=== PATIENT | female | born 1960 ===

== ENCOUNTER 2017-01-21 09:30 | Day surgery (SDC) | payer OTHER, MEDICAID ==
[2017-01-19 10:54] VITALS: BMI 49.4
[~2017-01-21 09:30] MED LIST: Acetaminophen/Codeine elixir 120-12mg/5ml PO PRN; Dextrose 5%/0.45% NS 1,000 ML IV SCH
[2017-01-21] MEDS ORDERED: Lactated Ringer's 1,000 ML IV ONE (11:44)
[2017-01-21] MEDS ORDERED: ceFAZolin IV 2 gm in Dextrose 1 GM/50 ML BAG IVPB ONE (11:44)
[2017-01-21] MEDS ORDERED: Lidocaine 2% w Epi 1:100,000 Inj IJ ONE (11:44)
[2017-01-21] MEDS ORDERED: Midazolam 2 MG/2 ML VIAL ONE (11:50)
[2017-01-21] MEDS ORDERED: HYDROmorphone 0.5 mg/0.5 ml ISec IVP PRN (12:08)
[2017-01-21 13:07] VITALS: O2SAT 96
[2017-01-21 15:35] VITALS: BP 120/72; PULSE 75; RESP 20; TEMP 97.9
--- NOTE | 2017-01-22 00:35 | OP ---
PROCEDURE DATE: 01/21/2017 PREOPERATIVE DIAGNOSIS: Left buccal mucosa mass. POSTOPERATIVE DIAGNOSIS: Left buccal mucosa mass. PROCEDURE: Left buccal mucosa mass removal. SIGNIFICANT FINDINGS: Left buccal mucosa mass. DESCRIPTION OF PROCEDURE: The patient was brought into the room and placed in the supine position. Anesthesia was initiated through IV sedation. The patient opened her mouth, left buccal mucosal mass was noted. It was injected with lidocaine with epinephrine. Bovie was used to make an incision in the mucosa around the mass. Dissections were done using a Bovie. The mass was removed. Bleeding was controlled using Bovie. At that point, the patient was taken to recovery room in stable manner. Charli Malin MD MTDPeter
== END 2017-01-21 13:45 | disposition home or self-care (01) ==
LOC: C.SDS 09:30
PROVIDERS: ATTEND Otolaryngology
DX: K13.79 Other lesions of oral mucosa (principal)
CPT/HCPCS: 41116; 82948; 88307; J0690; J1100; J2250; J3010; J7120

== ENCOUNTER 2017-09-08 12:08 | Emergency (ER) | payer MEDICARE, MEDICAID ==
[2017-09-08 12:08] VITALS: BMI 49.4
[2017-09-08 12:15] VITALS: BP 110/77; PULSE 100; RESP 18; TEMP 98.1; O2SAT 98
[2017-09-08] MEDS ORDERED: Naproxen 550 mg Tab PO STA (12:36)
--- NOTE | 2017-09-08 12:41 | C.PDOC ---
History Of Present Illness 57 y/o female, w/PMHx of DM presents to the ER complaining of vulvar and vaginal itching w/discharge present for the past 2 weeks. Patient states she is also having dysuria. Patient has had prior similar symptoms. She denies fever, chills, abdominal pain, nausea, vomiting, diarrhea. Time Seen by Provider: 09/08/17 12:19 Chief Complaint (Nursing): Female Genitourinary History Per: Patient History/Exam Limitations: no limitations Onset/Duration Of Symptoms: Days Current Symptoms Are (Timing): Still Present Severity: Moderate Past Medical History Reviewed: Historical Data, Nursing Documentation, Vital Signs Vital Signs: Last Vital Signs Temp 98.1 F 09/08/17 12:11 Pulse 100 H 09/08/17 12:11 Resp 18 09/08/17 12:11 BP 110/77 09/08/17 12:11 Pulse Ox 98 09/08/17 16:30 - Medical History PMH: Arthritis, Bronchitis, Diabetes (type 2), Gastritis, Gall Bladder Disease, Rheumatoid Arthritis Surgical History: Cholecystectomy Family History: States: No Known Family Hx - Social History Hx Tobacco Use: No Hx Alcohol Use: No Hx Substance Use: No - Immunization History Hx Tetanus Toxoid Vaccination: No Hx Influenza Vaccination: No Hx Pneumococcal Vaccination: No Review Of Systems Except As Marked, All Systems Reviewed And Found Negative. Genitourinary: Positive for: Other (vulvar and vaginal itching) Physical Exam - Physical Exam Appears: Well, Non-toxic, No Acute Distress, Other (obese) Skin: Normal Color, Warm Eye(s): bilateral: Normal Inspection Oral Mucosa: Moist Neck: Supple Cardiovascular: Rhythm Regular Respiratory: Normal Breath Sounds, No Rales, No Rhonchi, No Wheezing Gastrointestinal/Abdominal: Normal Exam, Bowel Sounds, Soft, No Tenderness Pelvic: Vaginal Discharge (thick, white cottage-cheese like discharge in vault) , Other (labia appea erythematous and irritated, excoriations on the labia bilaterally, no vesicular lesions) Neurological/Psych: Oriented x3 ED Course And Treatment O2 Sat by Pulse Oximetry: 98 (RA) Pulse Ox Interpretation: Normal Progress Note: UA ordered and reviewed - appears to be dirty catch, and dysuria likely due to urine on excoriations on labia. Do not suspect UTI, and antibiotics may aggravate fungal infection. Patient given PO Naprosyn and Diflucan. Rxs for Diflucan and Miconazole topical given. Patient instructed to follow up with PMD/clinic in 1-2 days. She understands she should return to ED if symptoms worsen. Disposition Counseled Patient/Family Regarding: Studies Performed, Diagnosis, Need For Followup, Rx Given - Disposition Referrals: Masoud Giles MD [Medical Doctor] - Disposition: HOME/ ROUTINE Disposition Time: 12:45 Condition: STABLE Prescriptions: Fluconazole [Diflucan] 150 mg PO DAILY #1 tab Miconazole 2% [Miconazole 2% Cream] 1 ea EXT BID #1 tube Instructions: Vulvovaginal Yeast Infection Forms: [employer] (Latvian) Print Language: CROATIAN - Clinical Impression Clinical Impression: Vulvovaginal candidiasis, Multiple excoriations - Scribe Statement The provider has reviewed the documentation as recorded by the Cassi Crowe Provider Attestation: All medical record entries made by the Jurgenibheidi were at my direction and personally dictated by me. I have reviewed the chart and agree that the record accurately reflects my personal performance of the history, physical exam, medical decision making, and the department course for this patient. I have also personally directed, reviewed, and agree with the discharge instructions and disposition.
[2017-09-08] MEDS ORDERED: Naproxen 550 mg Tab PO ONE (12:42)
[2017-09-08 13:01] LABS: SQUAMOUS EPITHIAL 1 /hpf (0-5); URINE BILIRUBIN NEGATIVE (NEGATIVE); URINE BLOOD 2+ (NEGATIVE); URINE CLARITY Hazy (Clear); URINE COLOR Yellow (YELLOW); URINE GLUCOSE (UA) 3+ mg/dL (Normal); URINE LEUKOCYTE ESTERASE 3+ Leu/uL (Negative); URINE PROTEIN 1+ mg/dL (NEGATIVE); URINE UROBILINOGEN NORMAL mg/dL (0.2-1.0)
== END 2017-09-08 13:15 | disposition home or self-care (01) ==
LOC: C.ER 12:08
DX: B37.3 Candidiasis of vulva and vagina (principal)

== ENCOUNTER 2017-10-04 14:24 | Emergency (ER) | payer MEDICARE, MEDICAID ==
[2017-10-04 14:24] VITALS: BMI 49.4
[2017-10-04 14:35] VITALS: O2SAT 95
[2017-10-04] MEDS ORDERED: Sodium Chloride 0.9% 1,000 ML IV ONE (15:05)
[2017-10-04] MEDS ORDERED: Sodium Chloride 0.9% 1,000 ML ONE (15:21)
[2017-10-04 15:31] LABS: BASO # 0.1 K/uL (0.0-0.2); BASO % 0.9 % (0.0-2.0); EOS # 0.1 K/uL (0.0-0.7); EOS % 1.8 % (0.0-4.0); HEMOGLOBIN 14.6 g/dL (11.0-16.0); LYMPH # 2.3 K/uL (1.0-4.3); MEAN CELL VOLUME 84.4 fL (81.0-99.0); MEAN CORPUSCULAR HEMOGLOBIN 29.4 pg (27.0-31.0); MEAN CORPUSCULAR HGB CONC 34.8 g/dL (33.0-37.0); MEAN PLATELET VOLUME 9.5 fL (7.2-11.7); MONO # 0.4 K/uL (0.0-0.8); MONO % 6.3 % (0.0-10.0); RBC 4.95 Mil/uL (3.80-5.20); RED CELL DISTRIBUTION WIDTH 13.4 % (11.5-14.5); WHITE BLOOD COUNT 6.9 K/uL (4.8-10.8)
[2017-10-04 15:38] LABS: SQUAMOUS EPITHIAL 12 /hpf (0-5); URINE BACTERIA RARE (<OCC); URINE BILIRUBIN NEGATIVE (NEGATIVE); URINE BLOOD 2+ (NEGATIVE); URINE CLARITY Hazy (Clear); URINE COLOR Straw (YELLOW); URINE GLUCOSE (UA) 3+ mg/dL (Normal); URINE LEUKOCYTE ESTERASE 2+ Leu/uL (Negative); URINE PROTEIN NEGATIVE (NEGATIVE); URINE UROBILINOGEN NORMAL mg/dL (0.2-1.0)
[2017-10-04 15:43] LABS: ALB/GLOB RATIO 1.1 (1.0-2.1); ALBUMIN 4.1 g/dL (3.5-5.0); ALT/SGPT 141 U/L (9-52); AST/SGOT 89 U/L (14-36); BLOOD UREA NITROGEN 12 mg/dL (7-17); CALCIUM 8.9 mg/dl (8.6-10.4); GFR AFRICAN-AMERICAN > 60; GFR NON-AFRICAN AMERICAN > 60
[2017-10-04] MEDS ORDERED: (Novolin R) Insulin Human Regular 100 units/ml vial IV ONE (15:50)
--- NOTE | 2017-10-04 15:54 | C.PDOC ---
History Of Present Illness 57year old female, with history of hypertension with diabetes, presents to ED with complaints of vaginal itching, irritation, dryness, discomfort and discharge for one week. She reports she was seen in ED recently for similar complaints took 2 pills and felt better, then symptoms returned. She also reports sugar has been high over 300 and admits to eating poorly, including more carbs and sweets. Patient states she did have a mesh placement for her urinary incontinence in the past. She currently denies any other medical complaints. Time Seen by Provider: 10/04/17 14:31 Chief Complaint (Nursing): Female Genitourinary History Per: Patient History/Exam Limitations: no limitations Onset/Duration Of Symptoms: Days Current Symptoms Are (Timing): Still Present Severity: Moderate Past Medical History Reviewed: Historical Data, Nursing Documentation, Vital Signs Vital Signs: Last Vital Signs Temp 98.3 F 10/04/17 16:52 Pulse 78 10/04/17 16:52 Resp 18 10/04/17 16:52 BP 143/87 10/04/17 16:52 Pulse Ox 95 10/04/17 18:06 - Medical History PMH: Arthritis, Bronchitis, Diabetes (type 2), Gastritis, Gall Bladder Disease, Rheumatoid Arthritis Denies: Hepatitis Surgical History: Cholecystectomy Family History: States: No Known Family Hx - Social History Hx Tobacco Use: No Hx Alcohol Use: No Hx Substance Use: No - Immunization History Hx Tetanus Toxoid Vaccination: No Hx Influenza Vaccination: No Hx Pneumococcal Vaccination: No Review Of Systems Except As Marked, All Systems Reviewed And Found Negative. Genitourinary: Positive for: Vaginal Discharge, Other (vaginal itching) Physical Exam - Physical Exam Appears: Non-toxic, No Acute Distress Skin: Normal Color, Warm Head: Atraumatic, Normacephalic Eye(s): bilateral: Normal Inspection Nose: Normal Oral Mucosa: Moist Neck: Supple Chest: Symmetrical Cardiovascular: Rhythm Regular Respiratory: Normal Breath Sounds, No Rales, No Rhonchi, No Wheezing Gastrointestinal/Abdominal: Normal Exam, Soft, No Tenderness Pelvic: Vaginal Discharge (white cottage-cheese like discharge in the vault), Other (labia with bright erythematous base and thin white film shiny borders, irritation, and excoriations on the labia bilaterally, no vesicular lesions) Extremity: Normal ROM Neurological/Psych: Oriented x3, Normal Speech ED Course And Treatment - Laboratory Results Result Diagrams: 10/04/17 15:25 10/04/17 15:25 O2 Sat by Pulse Oximetry: 95 (RA) Pulse Ox Interpretation: Normal Medical Decision Making Medical Decision Making: Patient with vaginal complaints and findings consistent with charity. Prior record reviewed patient was treated for similar last visit. Accucheck was 374. Ordered labs and IV fluids. Oral Diflucan ordered. Patient remained well in no acute distress. Repeat accucheck <300. advised on diet and exercise and to follow up in the clinic and with ad setter for further evaluation. Disposition Counseled Patient/Family Regarding: Diagnosis, Need For Followup, Rx Given - Disposition Referrals: Masoud Giles MD [Medical Doctor] - [facility] [Outside] Disposition: HOME/ ROUTINE Disposition Time: 16:52 Condition: GOOD Additional Instructions: Receta enviada a la farmacia de [place] medicamentos para la diabetes y observe la dieta para controlar mejor los azcares [place] la medicacin en 72 horas para la infeccin de la levadura y aplique la crema al clint Zaira un seguimiento con russ mdico primario en 2-5 aden para jose evaluacin adicional. Regrese al departamento de emergencia en cualquier momento si los sntomas persisten o empeoran. Prescriptions: Fluconazole [Diflucan] 150 mg PO ONCE #1 tab Miconazole 2% [Miconazole 2% Cream] 1 ea EXT BID #1 tube Instructions: Vaginal Yeast Infection (DC), Diabetes Diet Forms: [employer] (Costa Rican) Print Language: SAMI - POA Present On Arrival: Poor Glycemic Control - Clinical Impression Clinical Impression: Vulvovaginal candidiasis, Poorly controlled diabetes mellitus - PA / RESEARCH LEADER / Resident Statement MD/DO has reviewed & agrees with the documentation as recorded. - Scribe Statement The provider has reviewed the documentation as recorded by the Scribe Jessica Crowe Provider Attestation All medical record entries made by the Scribe were at my direction and personally dictated by me. I have reviewed the chart and agree that the record accurately reflects my personal performance of the history, physical exam, medical decision making, and the department course for this patient. I have also personally directed, reviewed, and agree with the discharge instructions and disposition.
[2017-10-04] MEDS ORDERED: (Novolin R) Insulin Human Regular 100 units/ml vial ONE (16:01)
[2017-10-04 16:53] VITALS: BP 143/87; PULSE 78; RESP 18; TEMP 98.3
== END 2017-10-04 17:21 | disposition home or self-care (01) ==
LOC: C.ER 14:24
DX: B37.3 Candidiasis of vulva and vagina (principal); E11.65 Type 2 diabetes mellitus with hyperglycemia
CPT/HCPCS: 80053; 81001; 82948; 85025; 87086; 87181; 96361; 96374; 99285; J7040

== ENCOUNTER 2017-10-14 09:52 | Emergency (ER) | payer MEDICARE, MEDICAID ==
[2017-10-14 09:53] VITALS: BMI 49.4
[2017-10-14 10:06] VITALS: BP 111/76; PULSE 72; TEMP 98; O2SAT 99
--- NOTE | 2017-10-14 10:34 | C.PDOC ---
History Of Present Illness 57 year old female presents to the ED with itchy eyes, and nasal congestion. Patient also states that she has seasonal allergies. She has been taking claritin for 1 week with mild improvement. Time Seen by Provider: 10/14/17 10:25 Chief Complaint (Nursing): Allergic Reaction History Per: Patient History/Exam Limitations: no limitations Onset/Duration Of Symptoms: Days Current Symptoms Are (Timing): Still Present Home/EMS Treatment: Other (taking claritin for 1 week with mild improvement) Past Medical History Reviewed: Historical Data, Nursing Documentation, Vital Signs Vital Signs: Last Vital Signs Temp 98 F 10/14/17 10:03 Pulse 72 10/14/17 10:03 Resp 16 10/14/17 10:57 BP 111/76 10/14/17 10:03 Pulse Ox 99 10/14/17 12:59 - Medical History PMH: Arthritis, Bronchitis, Diabetes (type 2), Gastritis, Gall Bladder Disease, Rheumatoid Arthritis Denies: Hepatitis Surgical History: Cholecystectomy Family History: States: Unknown Family Hx - Social History Hx Tobacco Use: No Hx Alcohol Use: No Hx Substance Use: No - Immunization History Hx Tetanus Toxoid Vaccination: No Hx Influenza Vaccination: No Hx Pneumococcal Vaccination: No Review Of Systems Except As Marked, All Systems Reviewed And Found Negative. Eyes: Positive for: Other (itchy) Musculoskeletal: Positive for: Other (Morbidly obese) Physical Exam - Physical Exam Appears: Well, Non-toxic, No Acute Distress Skin: Normal Color, Warm Nose: Other (Nasal congestion) ED Course And Treatment O2 Sat by Pulse Oximetry: 99 (RA) Pulse Ox Interpretation: Normal Medical Decision Making Medical Decision Making: IMPRESSION: seasonal allergies seasonal conjunctivitis clear lungsIMP Disposition Doctor Will See Patient In The: Office Counseled Patient/Family Regarding: Studies Performed, Diagnosis - Disposition Referrals: [facility] [Outside] [facility] [Outside] [facility] [Outside] Disposition: HOME/ ROUTINE Disposition Time: 10:33 Condition: GOOD Additional Instructions: Sigue Ceterizine Usa Afrin Usa gotas para las allergias de los ojos Pseudafed para congestion nasal mas krish sigue en la [facility] Instructions: Seasonal Allergies in Adults, Seasonal Allergies (DC) Forms: [employer] (German) Print Language: BRITISH [place] IS[place] - Clinical Impression Clinical Impression: Seasonal allergic rhinitis - Scribe Statement The provider has reviewed the documentation as recorded by the Scribe (Nilsa Ramesh) Provider Attestation: All medical record entries made by the Scribe were at my direction and personally dictated by me. I have reviewed the chart and agree that the record accurately reflects my personal performance of the history, physical exam, medical decision making, and the department course for this patient. I have also personally directed, reviewed, and agree with the discharge instructions and disposition.
[2017-10-14 11:07] VITALS: RESP 16
== END 2017-10-14 10:57 | disposition home or self-care (01) ==
LOC: C.ER 09:52
DX: J30.2 Other seasonal allergic rhinitis (principal)